=== PATIENT | male | born 1945 | race Two or more races ===

== ENCOUNTER 2024-02-29 11:05 | Emergency (ER) | payer OTHER ==
[~2024-02-29] VITALS: Ht 172.7 cm; Wt 77.1 kg
[2024-02-29 11:48] LABS: HEMATOCRIT 40.4 % (39.0-48.0); HEMOGLOBIN 13.7 g/dL (13-16.00); MEAN CELL VOLUME 95.6 fL (80.0-100.00); MEAN CORPUSCULAR HEMOGLOBIN 32.4 pg (27.00-32.0); MEAN CORPUSCULAR HGB CONC 33.9 g/dl (32.0-36.0); PLATELET COUNT 314 K/uL (150-450); RED BLOOD COUNT 4.23 M/uL (4.00-6.00); RED CELL DISTRIBUTION WIDTH 13.3 % (11.5-14.5)
[2024-02-29 12:14] LABS: ALBUMIN 3.8 gm/dL (3.4-5.0); BILIRUBIN TOTAL 0.6 mg/dL (0.3-1.2); CALCIUM 10.3 mg/dL (8.5-10.1); CREATININE SERUM 1.13 mg/dL (0.70-1.30); GFR 62.76; GLOBULINA 4.3 G/DL (2.4-3.5); POTASSIUM 3.45 mEq/L (3.5-5.1); TOTAL PROTEIN 8.1 gm/dL (6.4-8.2)
[2024-02-29 12:56] LABS: URINE BILIRRUBIN Negative (NEGATIVE); URINE BLOOD Negative; URINE COLOR Yellow; URINE GLUCOSE Negative (NEGATIVE); URINE KETONE Negative (NEGATIVE); URINE LEUKOCYTE Negative; URINE NITRATE Negative; URINE PROTEIN Negative (NEGATIVE); URINE UROBILINOGEN 0.2 E.U./dl
[2024-02-29 13:00] LABS: URINE BACTERIA 8.8 uL (0.0-1933); URINE EPITHELIAL CELLS 3.6 uL (0.0-38.8); URINE RBC 4.5 uL (0.0-20.8); URINE WBC 2.4 uL (0.0-23.2)
[2024-02-29 13:12] LABS: URINE CAST 1.37 uL (0.0-1.40)
[2024-02-29 13:13] LABS: URINE APPEARANCE CLEAR
== END 2024-02-29 13:55 | disposition home or self-care (01) ==
LOC: ER 11:05
PROVIDERS: General Practice
DX: R41.82 Altered mental status, unspecified (principal); R53.1 Weakness; I10 Essential (primary) hypertension; E11.9 Type 2 diabetes mellitus without complications